=== PATIENT | female | born 1955 | race Two or more races ===

== ENCOUNTER → 2024-04-17 | Outpatient (CLI) | payer OTHER, MEDICAID, SELFPAY | END | disposition home or self-care (01) | LOC: CDIM 12:51 | PROVIDERS: PCP Nurse Practitioner; Referring Provider Nurse Practitioner; Visit Provider Nurse Practitioner | DX: Z53.8 Procedure and treatment not carried out for other reasons (principal) ==

== ENCOUNTER → 2024-09-23 | Outpatient (CLI) | payer OTHER, MEDICAID, SELFPAY ==
--- NOTE | 2024-09-23 10:00 | XR_ITS ---
Examination: Esophagram standard Upright PA chest single view Soft tissue lateral neck single view 6 spot fluoroscopic films of the esophagus Fluoroscopy Date and time: September 23, 2024 1001 hours INDICATIONS: Difficulty swallowing months. TECHNIQUE AND FINDINGS: Upright PA chest demonstrates significant right pleural fluid with atelectasis versus pneumonia right base Soft tissue lateral neck single view demonstrates normal epiglottis Patient swallowed thin barium with 6 spot fluoroscopic films of the esophagus, radiation dose 23.65 milligray fluoroscopy 0.4 minute Numerous secondary and tertiary esophageal contractions with esophageal spasm No constricting esophageal lesion No stricture at the gastroesophageal junction Mild intermittent gastroesophageal reflux IMPRESSION: Significant esophageal dysmotility Pneumonia versus atelectasis right base Large right pleural effusion
--- NOTE | 2024-09-23 10:30 | XR_ITS ---
Examination: Video esophagram. Modified barium swallow 41 spot fluoroscopic soft tissue lateral films of the neck with the patient swallowing Fluoroscopy Date and time: September 23, 2024 1038 hours INDICATIONS: Difficulty swallowing this month TECHNIQUE AND FINDINGS: Patient swallowed thin barium, pudding barium, barium coated crackers Fluoroscopy 0.2 minute 41 spot fluoroscopic films of the soft tissue lateral neck radiation dose 25.06 milligray No pharyngeal penetration or aspiration IMPRESSION: No pharyngeal penetration or aspiration
== END | disposition home or self-care (01) ==
LOC: SDIM 09:22
PROVIDERS: Referring Provider Physician Assistant; Visit Provider Physician Assistant
DX: J90 Pleural effusion, not elsewhere classified (principal); R91.8 Other nonspecific abnormal finding of lung field
CPT/HCPCS: 74220; 74230; A4699; A9270